=== PATIENT | female | born 1960 | race American Indian/Alaskan Native ===

== ENCOUNTER 2019-11-20 08:11 | Outpatient (CLI) | payer OTHER ==
--- NOTE | 2019-11-20 08:58 | XRay Report ---
LUMBOSACRAL SPINE 3 VIEWS INDICATION: BACK PAIN. Chronic low back pain, disability exam. COMPARISON: None. IMPRESSION: Normal bone mineralization. Normal alignment. Mild disc space narrowing and endplate sp urring is identified at L5-S1. Minimal degenerative endplate changes are noted at the remaining level s. Mild diffuse facet arthropathy is also identified. No acute osseous or soft tissue abnormality. Signer Name: Shiv Foreman Jr, MD Signed: 11/20/2019 8:54 AM Workstation Name: [id number]
== END 2019-11-20 08:12 | disposition home or self-care (01) ==
LOC: XRAY 08:11
PROVIDERS: ATTEND Internal Medicine
DX: M46.07 Spinal enthesopathy, lumbosacral region (principal); M50.30 Other cervical disc degeneration, unspecified cervical region; M47.817 Spondylosis without myelopathy or radiculopathy, lumbosacral region
CPT/HCPCS: 72100

== ENCOUNTER 2020-02-19 08:43 | Outpatient (CLI) | payer OTHER ==
--- NOTE | 2020-02-19 10:06 | XRay Report ---
XR spine cervical 2-3V INDICATION / CLINICAL INFORMATION: BACK PAIN COMPARISON: None FINDINGS: BONES/JOINT(S): Cervical spinal alignment is preserved. There is no acute fracture or subluxation. Ce rvical disc spaces are preserved with small marginal osteophytes. Mild multilevel facet joint degener ative changes. PARASPINAL SOFT TISSUES:No significant abnormality. ADDITIONAL FINDINGS: None. IMPRESSION: Mild multilevel cervical spondylosis without acute osseous findings. Signer Name: Tobi Benton MD Signed: 02/19/2020 10:01 AM Workstation Name: [id number]
--- NOTE | 2020-02-19 10:08 | XRay Report ---
LUMBAR SPINE 3 VIEWS INDICATION / CLINICAL INFORMATION: BACK PAIN. COMPARISON: 11/20/2019 FINDINGS: Mild degenerative disc changes, as described on the previous study. Moderate facet hypertrophy at L4- 5 and L5-S1. Lateral view is slightly rotated, but vertebral alignment appears normal. No definite acute abnormalities. Signer Name: Fareed Longoria MD Signed: 02/19/2020 10:03 AM Workstation Name: [email or web address]
== END 2020-02-19 08:44 | disposition home or self-care (01) ==
LOC: XRAY 08:43
PROVIDERS: ATTEND Internal Medicine
DX: M47.817 Spondylosis without myelopathy or radiculopathy, lumbosacral region (principal); M47.812 Spondylosis without myelopathy or radiculopathy, cervical region
CPT/HCPCS: 72040; 72100